=== PATIENT | male | born 1950 | race Caucasian/White ===

== ENCOUNTER 2022-07-30 10:32 | Inpatient (IN) | payer OTHER, MEDICAID ==
[~2022-07-30] VITALS: Ht 188 cm; Wt 68.0 kg
[~2022-07-30 10:32] MED LIST: ALBU0.0912 IH; ALLO100T21 PO; AMIO200T10 PO; AMOX-999 PO; ASCO500T95 PO; DULO30EC PO; ERGO-30 PO; FERR325E14 PO; MAGN400T7 PO; METO50TA99 PO; MULT-1469 PO; PANT40EC PO; POTA10TA70 PO
[2022-07-30 10:35] VITALS: BP 153/98
--- NOTE | 2022-07-30 10:39 | NUR ---
BIBA BLS TO ER BED 3
[2022-07-30] MEDS ORDERED: ALBUTEROL SULFATE/IPRATROPIU 3 ML SOL IH ONE (10:50)
--- NOTE | 2022-07-30 11:00 | NUR ---
RT AT BEDSIDE.
--- NOTE | 2022-07-30 11:13 | NUR ---
71 Y/O M BIBA FROM [facility] C/O SOB SINCE THIS MORNING AND BILATTERAL LEG SWELLING. PT WAS PUT ON LASIX BY A PA AT THE FACILITY. NKA PMH: DM, HTN, HEP C, AZTHMA, CHRONIC KIDNEY DISEASE, HEART FAILURE, GOUT, GERD, ANXIETY DISORDER, SEE CHART FOR EXTENCIVE HX.
--- NOTE | 2022-07-30 11:41 | NUR ---
LAB AT BEDSIDE.
--- NOTE | 2022-07-30 11:41 | NUR ---
NEGRO SWABED AND WALKED TO THE LAB.
[2022-07-30] MEDS ORDERED: CEFEPIME 2,000 MG in DEXTROSE 5% 100 ML IV ONE (12:00)
[2022-07-30] MEDS ORDERED: ATI.5 PO (12:10)
[2022-07-30] MEDS ORDERED: ACET-2619 PO (12:10)
[2022-07-30] MEDS ORDERED: HYDR12.51 PO (12:10)
[2022-07-30 12:13] LABS: BASOPHILS # (AUTO) 0.1 K/uL (0.00-0.22); BASOPHILS % (AUTO) 1.1 % (0.0-2.0); EOSINOPHILS # (AUTO) 0.1 K/uL (0-0.4); EOSINOPHILS % (AUTO) 0.5 % (0.0-4.0); HEMATOCRIT 25.8 % (36-52); HEMOGLOBIN 8.4 g/dL (12.0-18.0); LYMPHOCYTES # (AUTO) 0.5 K/uL (2.0-11.5); LYMPHOCYTES % (AUTO) 4.5 % (20.5-51.1); MEAN CORPUSCULAR HEMOGLOBIN 32 pg (27-31); MEAN CORPUSCULAR HGB CONC 33 g/dL (33-37); MEAN CORPUSCULAR VOLUME 97.8 fL (80-94); MONOCYTES # (AUTO) 1.1 K/uL (0.8-1.0); NEUTROPHILS % (AUTO) 83.9 % (42.2-75.2); PLATELET COUNT (AUTO) 272 K/uL (140-450); RED BLOOD CELL COUNT(AUTO) 2.64 MIL/uL (4.20-6.10); RED CELL DISTRIBUTION WIDTH 16.5 % (11.6-13.7); WHITE BLOOD COUNT (AUTO) 10.8 K/uL (4.8-10.8)
[2022-07-30] MEDS ORDERED: cefTRIAXone 2,000 MG VIAL ONE (12:24)
[2022-07-30] MEDS ORDERED: CEFEPIME 2,000 MG VIAL IV ONE (12:26)
[2022-07-30 12:28] LABS: PROTHROMBIN TIME 10.6 secs (10.8-13.4)
[2022-07-30 12:33] LABS: ALBUMIN 2.9 g/dL (3.4-5.0); ANION GAP 14.8 (8-16); ASPARTATE AMINOTRANSFERASE 18 U/L (15-37); CARBON DIOXIDE 22.2 mmol/L (21-32); CHLORIDE 109 mmol/L (98-107); GLUCOSE 94 mg/dL (74-106); SODIUM SERUM 142 mmol/L (136-145); TOTAL BILIRUBIN 0.8 mg/dL (0.0-1.0); UREA NITROGEN, BLOOD 47 mg/dL (7-18)
[2022-07-30 13:08] LABS: APPEARANCE,URINE CLEAR (CLEAR); BILIRUBIN,URINE NEGATIVE (NEGATIVE); BLOOD, URINE 1+ (NEGATIVE); COLOR,URINE YELLOW (YELLOW); LEUKOCYTE ESTERASE ,URINE NEGATIVE (NEGATIVE); NITRITE, URINE NEGATIVE (NEGATIVE); UGLUCOSE NEGATIVE (NEGATIVE)
[2022-07-30 13:20] LABS: RBC,URINE 0-5 /HPF (0-5); WBC,URINE 0-5 /HPF (0-5)
[2022-07-30 13:21] LABS: FINE GRANULAR CASTS,URINE 0-10 /LPF (None Seen)
[2022-07-30] MEDS ORDERED: methylPREDNISolone SS 125 MG/2 ML VIAL IVP SCH (13:35)
[2022-07-30] MEDS ORDERED: MAG SULF 2000 MG/WATER PREMIX 50 ML IV ONE (13:35)
[2022-07-30] MEDS ORDERED: FUROSEMIDE 100 MG/10 ML VIAL IV ONE (13:40)
[2022-07-30] MEDS ORDERED: ASPIRIN 325 MG TAB PO ONE (13:40)
[2022-07-30] MEDS ORDERED: HYDROcodone/APAP 7.5/325 MG 1 TAB PO PRN (15:00)
[2022-07-30] MEDS ORDERED: guaiFENesin DM 200/20 MG-10 ML 10 ML UDC PO PRN (15:00)
[2022-07-30] MEDS ORDERED: ONDANSETRON 4 MG/2 ML VIAL IM/IVP PRN (15:00)
[2022-07-30] MEDS ORDERED: ZOLPIDEM 5 MG TAB PO PRN (15:00)
[2022-07-30] MEDS ORDERED: ACETAMINOPHEN 325 MG TAB PO PRN (15:00)
[2022-07-30] MEDS ORDERED: POTASSIUM CHLORIDE 10 MEQ TABER PO PRN (15:00)
[2022-07-30] MEDS ORDERED: DOCUSATE SODIUM 100 MG GELCAP PO PRN (15:00)
--- NOTE | 2022-07-30 15:05 | NUR ---
Pt report given to TONIO REED. Transfer of care at this time.
--- NOTE | 2022-07-30 15:12 | NUR ---
Chart checked and completed. The patient's care was reviewed and supervised by Madeline Roland RN.
[2022-07-30 15:35] LABS: CHOL/HDL RATIO 2.1 (1-4.5); MAGNESIUM 2.2 mg/dL (1.8-2.4); PHOSPHORUS 3.3 mg/dL (2.5-4.9)
[2022-07-30] MEDS: HALOPERIDOL IM 5 MG/ML VIAL IM PRN (15:43)
--- NOTE | 2022-07-30 15:52 | NUR ---
RECEIVED PATIENT FROM ED VIA GURNEY AT 1500. A/O X1. PATIENT CONFUSED AND BECAME COMBATIVE WITH STAFF WHILE TRYING TO CLEAN PATIENT. PATIENT USING FOUL LANGUAGE TOWARDS STAFF AND ATTEMPTING TO HIT STAFF. PATIENT PULLED OUT IV AND TELE BOX OFF AND WOULD NOT ALLOW LAB TO DRAW LABS. DR. OCHOA PRESENT IN UNIT AND CAME TO BEDSIDE AND WITNESSED PATIENTS BEHAVIOR. ORDERS GIVEN TO PLACE ROBBY SOFT WRIST RESTRAINTS AND GIVE HALDOL 5MG IM. RESTRAINTS APPLIED AT 1515 ORDERED AND HALDOL 5MG IM GIVEN AT 1543 ORDERED. CHARGE NURSE MADE AWARE AND DR. OCHOA AWARE PATIENT HAS NO IV ACCESS AT THIS TIME. WILL TRY AND START NEW IV ONCE PATIENT IS MORE CALM. RESPIRATIONS EVEN AND UNLABORED. NO ACUTE DISTRESS NOTED AT THIS TIME. WILL CONTINUE TO MONITOR FOR SAFETY. Eunice PARK RN.
[2022-07-30 16:00] VITALS: BP 162/70
--- NOTE | 2022-07-30 18:28 | NUR ---
P.T. NOTES P.T. EVAL COMPLETED; REFER TO EVAL FOR DETAILS.
--- NOTE | 2022-07-30 18:39 | NUR ---
1725 SPOKE TO PATIENTS SISTER CARRIE MINOR AND INFORMED HER OF PATIENTS BEHAVIOR AND NEED TO BE IN RESTRAINTS. SHE VERBALIZED UNDERSTANDING AND STATED HER BROTHER HAS DEMENTIA AND THE LAST TIME HE WAS ADMITTED TO THIS HOSPITAL HE HAD TO HAVE A SITTER. ALSO INFORMED HER PATIENT PULLED OUT HIS IV AND OBTAINED CONSENT FOR PICC LINE/ MIDLINE. DR. OCHOA AWARE CONSENT OBTAINED. Eunice PARK RN.
--- NOTE | 2022-07-30 19:20 | NUR ---
RECEIVED REPORT FROM DAY SHIFT RN FOR CONTINUITY OF CARE. PT IS CURRENTLY SLEEPING IN BED. PT NOT IN ANY ACUTE DISTRESS. PT HAS 24 GAUGE ON LEFT WRIST. PT IS ON SOFT WRIST RESTRAINTS. BED AT THE LOWEST POSITION. HEAD OF THE BED RAISED. WILL CONTINUE TO MONITOR THE PT.
[2022-07-30 20:00] VITALS: BP 159/77
[2022-07-30] MEDS: QUEtiapine FUMARATE 25 MG TAB PO SCH (20:53)
--- NOTE | 2022-07-30 20:53 | NUR ---
SCHEDULE MEDICATIONS NOT GIVEN. PT IS CONFUSED AAOX1. PT REFUSED MEDICATION. PT REFUSED THE MEDICATION WITH FOOD. DID NOT WANT ANY WATER. REFUSED EVERYTHING.
[2022-07-30] MEDS ORDERED: VANCOMYCIN PER PHARMACY MC PRN (21:10)
[2022-07-30] MEDS ORDERED: VANCOMYCIN 1GM/DEXT 5% PREMIX 200 ML IV SCH (21:30)
[2022-07-30] MEDS ORDERED: VANCOMYCIN 1,000 MG VIAL ONE (21:47)
--- NOTE | 2022-07-30 22:24 | NUR ---
NEW MEDICATION ORDER VANCOMYCIN GIVEN. NO ADVERSE REACTION NOTED. WILL CONTINUE TO MONITOR THE PT.
[2022-07-31] VITALS: BP 158/87
[2022-07-31] MEDS ORDERED: AMPICILLIN/SULBACTAM 1.5 GM VIAL ONE ×2 (00:12→06:28)
[2022-07-31] MEDS: AMPICILLIN/SULBACTAM 1.5 GM in NACL 0.9% 50 ML IV SCH ×4 (00:24→21:41)
--- NOTE | 2022-07-31 00:30 | NUR ---
NEW MEDICATION ORDER AMPICILLIN GIVEN. NO ADVERSE REACTION NOTED. WILL CONTINUE TO MONITOR THE PT.
[2022-07-31 04:00] VITALS: BP 189/94
[2022-07-31] MEDS: METOPROLOL 50 MG TAB PO SCH ×3 (04:56→21:00)
--- NOTE | 2022-07-31 05:00 | NUR ---
SCHEDULE MEDICATIONS GIVEN. NORCO GIVEN WELL FOR BACK PAIN. NO OTHER COMPLAINS. WILL CONTINUE TO MONITOR THE PT.
[2022-07-31 06:04] LABS: BARBITURATE, URINE NEGATIVE ng/ml (NEG <=200); BENZODIAZEPINE, URINE NEGATIVE ng/mL (NEG <=200); CANNABINOID, URINE NEGATIVE ng/mL (NEG <=50); COCAINE, URINE NEGATIVE ng/mL (NEG <=300); OPIATE, URINE NEGATIVE ng/mL (NEG <=2000); PHENCYCLIDINE SCREEN,URINE NEGATIVE ng/mL (NEG <=25)
[2022-07-31] MEDS: hydrALAZINE 20 MG/ML VIAL IVP PRN (06:34)
--- NOTE | 2022-07-31 07:18 | NUR ---
ENDORSED PT TO DAY SHIFT RN FOR CONTINUITY OF CARE. PT IS STABLE.
[2022-07-31 07:20] LABS: ANION GAP 16.9 (8-16); CHLORIDE 107 mmol/L (98-107); GLUCOSE 155 mg/dL (74-106); POTASSIUM 4.9 mmol/L (3.5-5.1); SODIUM SERUM 141 mmol/L (136-145); UREA NITROGEN, BLOOD 55 mg/dL (7-18)
[2022-07-31 07:21] LABS: BASOPHILS % (AUTO) 0.2 % (0.0-2.0); HEMATOCRIT 25.8 % (36-52); HEMOGLOBIN 8.6 g/dL (12.0-18.0); LYMPHOCYTES # (AUTO) 0.2 K/uL (2.0-11.5); LYMPHOCYTES % (AUTO) 2.7 % (20.5-51.1); MEAN CORPUSCULAR HEMOGLOBIN 32 pg (27-31); MEAN CORPUSCULAR HGB CONC 33 g/dL (33-37); MEAN CORPUSCULAR VOLUME 95.9 fL (80-94); MONOCYTES # (AUTO) 0.2 K/uL (0.8-1.0); MONOCYTES % (AUTO) 2.5 % (1.7-9.3); NEUTROPHILS # (AUTO) 7.8 K/uL (1.8-7.7); NEUTROPHILS % (AUTO) 94.6 % (42.2-75.2); PLATELET COUNT (AUTO) 273 K/uL (140-450); RED BLOOD CELL COUNT(AUTO) 2.69 MIL/uL (4.20-6.10); RED CELL DISTRIBUTION WIDTH 15.9 % (11.6-13.7); WHITE BLOOD COUNT (AUTO) 8.3 K/uL (4.8-10.8)
[2022-07-31 07:48] LABS: CREATININE 4.4 mg/dL (0.6-1.3)
[2022-07-31 08:00] VITALS: BP 169/88
[2022-07-31] MEDS ORDERED: PANTOPRAZOLE 40 MG TABEC PO SCH (09:00)
[2022-07-31] MEDS: hydroCHLOROthiazide 25 MG TAB PO SCH (09:31)
[2022-07-31] MEDS: AMIODARONE 200 MG TAB PO SCH ×2 (09:31→21:00)
[2022-07-31] MEDS: LORazepam 0.5 MG TAB PO SCH (09:32)
[2022-07-31] MEDS: FERROUS SULFATE 325 MG TABEC PO SCH ×2 (09:32→21:41)
[2022-07-31] MEDS: QUEtiapine FUMARATE 25 MG TAB PO SCH ×2 (09:32→21:41)
[2022-07-31] MEDS: DULoxetine 30 MG CAPDR PO SCH (09:32)
[2022-07-31] MEDS: allopurinoL 100 MG TAB PO SCH (09:32)
[2022-07-31] MEDS: PANTOPRAZOLE 40 MG TABEC PO SCH (09:33)
--- NOTE | 2022-07-31 11:38 | NUR ---
PATIENT HAS BEEN SCREENED AND CATEGORIZED MODERATE NUTRITION RISK. PATIENT WILL BE SEEN WITHIN 3-5 DAYS OF ADMISSION. 08/02/2210 PT BMI 14.9 IS INCORRECT PER RN. UNABLE TO MEASURE PT WEIGHT AT THIS TIME D/T NO BED SCALE OPTION. UNABLE TO OBTAIN INFORMATION FROM PT D/T PT SLEEPING AND HAS DEMENTIA. RD VISUALLY EXAMINED PT, NOT MALNOURISHED. PT ABLE TO FEED SELF, 100% PO INTAKE. RECOMMENDED RENAL DIET. GABRIELLE SUMNER RD
[2022-07-31 12:00] VITALS: BP 137/64
--- NOTE | 2022-07-31 12:59 | NUR ---
DC PLANNING SW OUTREACHED TO [facility] TO GATHER COLLATERAL INFORMATION PATIENT IS MINIMALLY VERBALLY. SW SPOKE WITH JOHN AT WHO REPORTED PATIENT WAS IN HOSPICE CARE UPON ADMISSION TO 02/27-05/25, THEN TRANSFERRED TO [facility] ON 05/25 PATIENT TESTED POSITIVE FOR COVID. HOSPICE WITH [facility] REVOKED OF 05/25/22. PATIENT RETURNED SKILLED CARE ON 06/09 AND IS RECEIVING PT/OT/NURSING CARE.JOHN REPORTS THAT PATIENT UTILIZES WC AND REQUIRES EXTENSIVE ASSIST. PATIENT REQUIRES ASSISTANCE WITH ALL ADL'S. JOHN REPORTS PATIENT AT BASELINE IS CONFUSED AND CAN BE RESISTANT TO CARE. PATIENTS SISTER IS CARRIE STAPLES [phone] IS REPORTED TO BE ACTIVE IN PATIENTS CARE. DC PLAN IS FOR PATIENT OT RETURN TO WHEN MEDICALLY STABLE.
[2022-07-31 16:00] VITALS: BP 134/67
--- NOTE | 2022-07-31 19:10 | NUR ---
RECEIVED BEDSIDE REPORT FROM DAY SHIFT RN FOR CONTINUITY OF CARE. PT IS ASLEEP. PT NO TIN ANY DISTRESS. PT IS ON RA SATING 98%. PT IS ON SOFT WRIST RESTRAINTS FOR PULLING LINES AND COMBATIVE BEHAVIOR. PT HAS LEFT WRIST 24 GAUGE SALINE LOCK. BED AT THE LOWEST POSITION. HEAD OF THE BED RAISED. WILL CONTINUE TO MONITOR THE PT.
[2022-07-31 20:00] VITALS: BP 122/80
--- NOTE | 2022-07-31 20:25 | NUR ---
NEW IV INSERTED ON RIGHT UPPER ARM 24 GAUGE.
--- NOTE | 2022-07-31 21:50 | NUR ---
SCHEDULE MEDICATIONS GIVEN EXCEPT AMPICILLIN. PT IV GOT INFILTRATED. TRIED NEW IV INSERTION WITHOUT SUCCESS. PT IS HARD STICK.
--- NOTE | 2022-07-31 22:25 | NUR ---
NEW IV INSERTED ON RIGHT UPPER ARM 24 GAUGE.
[2022-08-01] VITALS: BP 119/71
--- NOTE | 2022-08-01 01:58 | NUR ---
PT IS SLEEPING COMFORTABLY IN BED. PT NOT IN ANY ACUTE DISTRESS. WILL CONTINUE TO MONITOR THE PT.
[2022-08-01 04:00] VITALS: BP 180/88
[2022-08-01] MEDS: hydrALAZINE 20 MG/ML VIAL IVP PRN (04:34)
--- NOTE | 2022-08-01 04:39 | NUR ---
PT BLOOD PRESSURE IS HIGH 180/88. HYDRALAZINE GIVEN PER MD ORDER.
[2022-08-01] MEDS: METOPROLOL 50 MG TAB PO SCH ×3 (05:00→21:00)
--- NOTE | 2022-08-01 07:18 | NUR ---
ENDORSED PT TO DAY SHIFT RN FOR CONTINUITY OF CARE. PT IS STABLE.
[2022-08-01 08:00] VITALS: BP_SYST 135; BP_SYST 151; BP_DIAS 74; BP_DIAS 86
[2022-08-01] MEDS: AMPICILLIN/SULBACTAM 1.5 GM in NACL 0.9% 50 ML IV SCH ×2 (08:56→20:27)
[2022-08-01] MEDS: PANTOPRAZOLE 40 MG TABEC PO SCH (08:57)
[2022-08-01] MEDS: DULoxetine 30 MG CAPDR PO SCH (08:57)
[2022-08-01] MEDS: hydroCHLOROthiazide 25 MG TAB PO SCH (08:57)
[2022-08-01] MEDS: allopurinoL 100 MG TAB PO SCH (08:58)
[2022-08-01] MEDS: QUEtiapine FUMARATE 25 MG TAB PO SCH ×2 (08:58→20:28)
[2022-08-01] MEDS: LORazepam 0.5 MG TAB PO SCH (08:58)
[2022-08-01] MEDS: AMIODARONE 200 MG TAB PO SCH ×2 (08:59→21:00)
[2022-08-01] MEDS: FERROUS SULFATE 325 MG TABEC PO SCH ×2 (08:59→20:27)
[2022-08-01 12:00] VITALS: BP 135/66
[2022-08-01 16:00] VITALS: BP 126/67
--- NOTE | 2022-08-01 19:20 | NUR ---
RECEIVED REPORT FROM DAY SHIFT RN FOR CONTINUITY OF CARE. PT IS AWAKE. PT IS AAOX2-3 WITH SOME CONFUSION. ON RA. PT HAS 24 GAUGE ON FAWAD. SALINE LOCK. PT IS CURRENTLY OFF RESTRAINTS. PT IS CALM AND COOPERATIVE. PLAN OF CARE DISCUSSED. WILL CONTINUE TO MONITOR THE PT.
[2022-08-01 20:00] VITALS: BP 107/59
[2022-08-01] MEDS: HALOPERIDOL IM 5 MG/ML VIAL IM PRN (20:37)
--- NOTE | 2022-08-01 20:50 | NUR ---
PT WAS GIVEN HALOPERIDOL. PT WAS BEING COMBATIVE AND WANTED TO LEAVE THE BED TO MAKE A PHONE CALL TO LEAVE THE HOSPITAL. PT WAS BECOMING VERY AGGRESSIVE AND YELLING OUT CURSE WORDS. PT REFUSED TO LISTEN AND WAS BEING UNCOOPERATIVE.
--- NOTE | 2022-08-01 23:28 | NUR ---
GELLER CATHETER INSERTED PER MD ORDER. PT BECAME COMBATIVE AND AGGRESSIVE. PT KEPT TRYING TO PULL GELLER CATHETER OUT. MESSAGED DR. OCHOA IF HE WANTS TO RENEW RESTRAINTS TO PREVENT PT FROM PULLING GELLER OUT.
[2022-08-02] VITALS: BP 109/63
--- NOTE | 2022-08-02 03:35 | NUR ---
PT IS SLEEPING COMFORTABLY IN BED. FC DRAINING CLEAR YELLOW URINE. PT HAS NOT PULLED GELLER OUT. PT IS NOT ON ANY RESTRAINTS
[2022-08-02 04:00] VITALS: BP 108/52
[2022-08-02] MEDS: METOPROLOL 50 MG TAB PO SCH ×3 (05:00→21:43)
--- NOTE | 2022-08-02 06:05 | NUR ---
PT IS SLEEPING COMFORTABLY IN BED. FC DRAINING CLEAR YELLOW URINE. PT HAS NOT PULLED GELLER OUT. PT IS NOT ON ANY RESTRAINTS
--- NOTE | 2022-08-02 07:32 | NUR ---
ENDORSED PT TO DAY SHIFT RN FOR CONTINUITY OF CARE. PT IS STABLE.
--- NOTE | 2022-08-02 07:46 | NUR ---
Report received from previous shift. Have reviewed care and continue to monitor pt. Pt in bed with call light in reach.
[2022-08-02 08:31] VITALS: BP 143/63
[2022-08-02] MEDS: AMIODARONE 200 MG TAB PO SCH ×2 (08:53→21:44)
[2022-08-02] MEDS: DULoxetine 30 MG CAPDR PO SCH (08:54)
[2022-08-02] MEDS: FERROUS SULFATE 325 MG TABEC PO SCH ×2 (08:54→21:44)
[2022-08-02] MEDS: allopurinoL 100 MG TAB PO SCH (08:55)
[2022-08-02] MEDS: LORazepam 0.5 MG TAB PO SCH (08:55)
[2022-08-02] MEDS: hydroCHLOROthiazide 25 MG TAB PO SCH (08:55)
[2022-08-02] MEDS: QUEtiapine FUMARATE 25 MG TAB PO SCH ×2 (08:55→21:44)
[2022-08-02] MEDS: AMPICILLIN/SULBACTAM 1.5 GM in NACL 0.9% 50 ML IV SCH ×2 (08:56→21:45)
[2022-08-02] MEDS: TAMSULOSIN 0.4 MG CAP PO SCH (08:56)
[2022-08-02] MEDS: PANTOPRAZOLE 40 MG TABEC PO SCH (08:56)
[2022-08-02 12:00] VITALS: BP 129/64
[2022-08-02 16:00] VITALS: BP 134/68
[2022-08-02 17:54] LABS: CARBON DIOXIDE 22.6 mmol/L (21-32); CHLORIDE 109 mmol/L (98-107); GLUCOSE 96 mg/dL (74-106); POTASSIUM 3.6 mmol/L (3.5-5.1); SODIUM SERUM 142 mmol/L (136-145)
[2022-08-02 18:09] LABS: UREA NITROGEN, BLOOD 75 mg/dL (7-18)
[2022-08-02 18:10] LABS: CREATININE 4.5 mg/dL (0.6-1.3)
--- NOTE | 2022-08-02 18:18 | NUR ---
Critical labs reported to this nurse from lab, this nurse reported to Dr Sullivan. Creatinine of 4.5 and BUN of 75. Last labs were 07/31/22 because of patient refusal. New order for NS at 70/hr started
[2022-08-02] MEDS: NACL 0.9% 1,000 ML IV SCH (18:37)
--- NOTE | 2022-08-02 18:50 | NUR ---
Pt admitted this shift for lower abd pain and dysuria. Pt reports 10/10 burning pain while urinating and frequency. Admission complete. Pt has NS running at 80/hr. YARN WRAPPER reported a temperature of 101 at 1600 VS check. Tylenol was given, upon recheck pt temperature was 99.4
[2022-08-02 20:00] VITALS: BP 130/66
[2022-08-03] VITALS: BP 131/68
[2022-08-03 04:00] VITALS: BP 161/90
[2022-08-03] MEDS: METOPROLOL 50 MG TAB PO SCH ×2 (05:25→13:49)
[2022-08-03 06:56] LABS: ANION GAP 14.1 (8-16); CARBON DIOXIDE 23.3 mmol/L (21-32); CHLORIDE 111 mmol/L (98-107); GLUCOSE 87 mg/dL (74-106); HEMATOCRIT 23.4 % (36-52); HEMOGLOBIN 7.8 g/dL (12.0-18.0); MEAN CORPUSCULAR HEMOGLOBIN 32 pg (27-31); MEAN CORPUSCULAR HGB CONC 33 g/dL (33-37); MEAN CORPUSCULAR VOLUME 94.6 fL (80-94); PLATELET COUNT (AUTO) 270 K/uL (140-450); POTASSIUM 3.4 mmol/L (3.5-5.1); RED BLOOD CELL COUNT(AUTO) 2.47 MIL/uL (4.20-6.10); RED CELL DISTRIBUTION WIDTH 15.6 % (11.6-13.7); SODIUM SERUM 145 mmol/L (136-145); WHITE BLOOD COUNT (AUTO) 6.8 K/uL (4.8-10.8)
[2022-08-03 07:03] LABS: CREATININE 4.4 mg/dL (0.6-1.3); UREA NITROGEN, BLOOD 74 mg/dL (7-18)
--- NOTE | 2022-08-03 07:07 | NUR ---
REC'D CRITICAL LAB RESULTS: BUN 74, CREAT 4.4. CONTACTED DR. OCHOA W/ DETAILS. PENDING FURTHER INSTRUCTIONS
[2022-08-03 08:00] VITALS: BP 153/87
[2022-08-03 08:07] LABS: LYMPHOCYTES % (MANUAL) 16 % (20-46)
[2022-08-03 08:08] LABS: MONOCYTES % (MANUAL) 14 % (5-12)
[2022-08-03] MEDS: AMPICILLIN/SULBACTAM 1.5 GM in NACL 0.9% 50 ML IV SCH (08:20)
[2022-08-03] MEDS: NACL 0.9% 1,000 ML IV SCH (08:22)
[2022-08-03] MEDS: allopurinoL 100 MG TAB PO SCH (08:24)
[2022-08-03] MEDS: QUEtiapine FUMARATE 25 MG TAB PO SCH (08:25)
[2022-08-03] MEDS: FERROUS SULFATE 325 MG TABEC PO SCH (08:27)
[2022-08-03] MEDS: AMIODARONE 200 MG TAB PO SCH (08:27)
[2022-08-03] MEDS: hydroCHLOROthiazide 25 MG TAB PO SCH (08:29)
[2022-08-03] MEDS: PANTOPRAZOLE 40 MG TABEC PO SCH (08:30)
[2022-08-03] MEDS: DULoxetine 30 MG CAPDR PO SCH (08:31)
[2022-08-03] MEDS: LORazepam 0.5 MG TAB PO SCH (08:31)
[2022-08-03] MEDS: TAMSULOSIN 0.4 MG CAP PO SCH (08:35)
--- NOTE | 2022-08-03 09:02 | NUR ---
PT. WITH LOW JHONATAN SCALE AT MODERATE TO HIGH RISK, CONTINUE TO FOLLOW PRESSURE INJURY PREVENTION INTERVENTIONS. -POSITIONING: TURN AND REPOSITION PATIENT Q 2H OR SOONER USE PILLOWS TO KEEP BONY PROMINENCES FROM DIRECT CONTACT WITH SURFACES USE REPOSITIONING WEDGES TO PROVIDE 30-DEGREE ANGLE FOR SIDE LYING POSITIONS OFFLOADING OR FOAM DRESSING TO ALL TUBING TO PREVENT MEDICAL DEVICES RELATED PRESSURE INJURY -RE-EVALUATING AND MANAGING INCONTINENCE MONITOR SKIN CONDITION DURING POSITION CHANGE DO NOT MASSAGE REDNESS, BONY PROMINENCES FREQUENT JEANIE-CARE AND PROVIDE BARRIER CREAMS PRN IF SOILING MOISTURE CONTROL BY OFFER BED CERVANTES/URINAL /ABSORBENT PAD TO WICK AND HOLD MOISTURE KEEP SKIN DRY AND PROTECT FROM FRICTION -MANAGE FRICTION/SHEAR/MOBILITY KEEP HOB AT THE LOWEST LEVEL OF ELEVATION NO MORE THAN 30 DEGREE UNLESS OTHERWISE CONTRAINDICATED USE LIFT SHEET OR TRANSFER DEVICE TO MOVE PATIENT AND PREVENT LATERAL SHEER. PROTECT HEELS, ELBOWS BONY PROMINENCES WITH SKIN BERRIES OR FOAM DRESSING IF EXPOSED TO FRICTION OFFLOAD BILATERAL HEELS BY PLACING PILLOWS UNDER CALVES AT ALL TIMES, UNLESS OTHERWISE CONTRAINDICATED -PRESSURE REDISTRIBUTION SURFACE THERAPY JUSTINO ISOFLEX MATTRESS -NUTRITION: PLEASE FOLLOW RD RECOMMENDATIONS AND OFFER NUTRITION SUPPLEMENTS IF ORDERED. PLEASE CONTACT WOUND CARE NURSE FOR ANY QUESTION AND CHANGE OF WOUND CONDITION.
[2022-08-03 10:00] VITALS: BP 132/69
[2022-08-03] MEDS ORDERED: UNASYN IV (10:15)
[2022-08-03] MEDS: HALOPERIDOL IM 5 MG/ML VIAL IM PRN (14:14)
--- NOTE | 2022-08-03 14:19 | NUR ---
FOUND PT TUGGING ON CATHETER, PT REFUSED TO LET GO, STATING HE DID NOT WANT IT. REORIENTED AND EDUCATED PT, PT REFUSED AND BECAME AGITATED. GAVE HALDOL IM IN RIGHT UPPER ARM. NOTIFIED PRIMARY RN PRISCILA.
[2022-08-03 16:00] VITALS: BP 146/72
--- NOTE | 2022-08-03 16:14 | NUR ---
08/03/2022 RD INITIAL ASSESSMENT COMPLETED. PLEASE REFER TO NUTRITION ASSESSMENT UNDER CARE ACTIVITY FOR ESTIMATED NUTRITIONAL NEEDS. 1. RECOMMEND DIET CHANGE TO RENAL DIET 2. MONITOR NUTRITION RELATED LAB VALUES 3. RD TO FOLLOW-UP IN 3-5 DAYS PATIENT IS MODERATE RISK. REVIEWED BY TIFF GOODWIN RD
--- NOTE | 2022-08-03 16:19 | NUR ---
DC PLANNING: PATIENT IS RETURNING TO [facility] # TO GIVE REPORT [phone] . ARRANGED TRANSPORT WITH [facility] # [id number] TRANSPORT WILL CALL THE UNIT FOR ETA. NOTIFIED CHARGE NURSE LULA. LUBNA TO FOLLOW
[2022-08-03 16:21] VITALS: BP 146/72
== END 2022-08-03 19:02 | DRG 280 ==
LOC: MED 10:32 → MTU 13:13
PROVIDERS: ADMIT Student in an Organized Health Care Education/Training Program; ATTEND Student in an Organized Health Care Education/Training Program
DX: I21.4 Non-ST elevation (NSTEMI) myocardial infarction (principal); E43 Unspecified severe protein-calorie malnutrition; J18.9 Pneumonia, unspecified organism; N17.0 Acute kidney failure with tubular necrosis; I50.33 Acute on chronic diastolic (congestive) heart failure; Z68.1 Body mass index [BMI] 19.9 or less, adult; I13.0 Hypertensive heart and chronic kidney disease with heart failure and stage 1 through stage 4 chronic kidney disease, or unspecified chronic kidney disease; N18.4 Chronic kidney disease, stage 4 (severe); C34.90 Malignant neoplasm of unspecified part of unspecified bronchus or lung; K74.60 Unspecified cirrhosis of liver; N40.0 Benign prostatic hyperplasia without lower urinary tract symptoms; D64.9 Anemia, unspecified; F03.90 Unspecified dementia, unspecified severity, without behavioral disturbance, psychotic disturbance, mood disturbance, and anxiety; E11.22 Type 2 diabetes mellitus with diabetic chronic kidney disease; Z20.822 Contact with and (suspected) exposure to COVID-19; Z86.718 Personal history of other venous thrombosis and embolism; Z79.01 Long term (current) use of anticoagulants
CPT/HCPCS: 36415; 71045; 76770; 80048; 80053; 80305; 81001; 82550; 83036; 83605; 83735; 83880; 84100; 84443; 84484; 85025; 85379; 85610; 85730; 87040; 87086; 93005; 93970; 96365; 96375; 97110; 97112; 97530; 99285; J0295; J0360; J0692; J0696; J1630; J1940; J2930; J3370; J3475; Q0092

== ENCOUNTER 2022-08-22 10:38 | Inpatient (IN) | payer OTHER, MEDICAID ==
[~2022-08-22] VITALS: Ht 193 cm; Wt 73.5 kg
[~2022-08-22 10:38] MED LIST changes: +ACET-2619 PO; -AMOX-999 PO; -ASCO500T95 PO; +ATI.5 PO; +HYDR12.51 PO; -MULT-1469 PO; -POTA10TA70 PO; +UNASYN IV
[2022-08-22 10:45] VITALS: BP 170/81
[2022-08-22] MEDS ORDERED: hydrALAZINE 20 MG/ML VIAL IVP ONE (11:15)
[2022-08-22 12:25] LABS: BASOPHILS % (AUTO) 0.6 % (0.0-2.0); EOSINOPHILS # (AUTO) 0.1 K/uL (0-0.4); EOSINOPHILS % (AUTO) 0.7 % (0.0-4.0); HEMATOCRIT 30.4 % (36-52); HEMOGLOBIN 10.2 g/dL (12.0-18.0); LYMPHOCYTES % (AUTO) 13.8 % (20.5-51.1); MEAN CORPUSCULAR HEMOGLOBIN 31 pg (27-31); MEAN CORPUSCULAR HGB CONC 34 g/dL (33-37); MONOCYTES # (AUTO) 0.8 K/uL (0.8-1.0); MONOCYTES % (AUTO) 12.1 % (1.7-9.3); NEUTROPHILS # (AUTO) 5.1 K/uL (1.8-7.7); NEUTROPHILS % (AUTO) 72.8 % (42.2-75.2); PLATELET COUNT (AUTO) 42 K/uL (140-450)
[2022-08-22 12:33] LABS: ALBUMIN 3.3 g/dL (3.4-5.0); ANION GAP 14.1 (8-16); ASPARTATE AMINOTRANSFERASE 29 U/L (15-37); CARBON DIOXIDE 26.6 mmol/L (21-32); CHLORIDE 106 mmol/L (98-107); GLUCOSE 100 mg/dL (74-106); POTASSIUM 3.7 mmol/L (3.5-5.1); SODIUM SERUM 143 mmol/L (136-145); TOTAL BILIRUBIN 0.5 mg/dL (0.0-1.0); UREA NITROGEN, BLOOD 44 mg/dL (7-18)
[2022-08-22] MEDS ORDERED: NITROGLYCERIN 0.4 MG TAB SL ONE (12:45)
[2022-08-22] MEDS ORDERED: FUROSEMIDE 40 MG/4 ML VIAL IVP ONE (12:45)
--- NOTE | 2022-08-22 12:48 | NUR ---
sleeping, easily arousable to verbal stimuli, denies any pain, sb on cm, o2 sat 99% ra, sr up times 2 labs drawn, bp med given iv, now lower bp, awaits dispo
[2022-08-22] MEDS ORDERED: ASPIRIN 325 MG TAB PO ONE (13:20)
[2022-08-22 14:17] LABS: APPEARANCE,URINE CLEAR (CLEAR); BILIRUBIN,URINE NEGATIVE (NEGATIVE); BLOOD, URINE 1+ (NEGATIVE); COLOR,URINE YELLOW (YELLOW); LEUKOCYTE ESTERASE ,URINE NEGATIVE (NEGATIVE); NITRITE, URINE NEGATIVE (NEGATIVE); UGLUCOSE NEGATIVE (NEGATIVE)
--- NOTE | 2022-08-22 14:46 | NUR ---
PT TRANSFERRED TO TELEBED, BEDSIDE REPORT GIVEN TO DEREK RICHARD PT SHOWED NO AC DISTRESS, SB ON CM, O2 SAT 99% RA. MED RECONCILIATION DONE PT DENIED ANY PAIN AT TRANSFER TIME, DIAPER WAS CLEAN AND DRY
--- NOTE | 2022-08-22 14:58 | NUR ---
RECEIVED FROM ED AWAKE UNABLE TO MAKE NEEDS KNOWN ASSESSMENT COMPLETED SKIN CLEAN DRY AND INTACT NO S/S OF PAIN BREATHING EVEN NON LABORED TROPONIN 266 MD BERNAL MADE AWARE WILL CONTINUE TO MONITOR AND ASSESS TURNED AND REPOSITIONED WILL CONTINUE TO MAKE ROUNDS
[2022-08-22 15:16] LABS: RBC,URINE 11-20 (MOD) /HPF (0-5); TRICHOMONAS,URINE None Seen /HPF (None Seen); WBC,URINE 0-5 /HPF (0-5); YEAST,URINE None Seen /HPF (None Seen)
[2022-08-22 15:17] LABS: RED BLOOD CELL CASTS,URINE 0-10 /LPF (None Seen)
[2022-08-22 16:00] VITALS: BP 176/87
--- NOTE | 2022-08-22 16:36 | NUR ---
PT COMBATIVE NON COMPLIANT PULLED OUT IV PULLED OFF TELEMETRY REFUSING TO HAVE IV REINSERTED AND REFUSING TELEMETRY BP 176/87 MD BERNAL PAGED AWAITING A REPLAY
[2022-08-22] MEDS ORDERED: DOCUSATE SODIUM 100 MG GELCAP PO PRN (16:45)
[2022-08-22] MEDS ORDERED: POTASSIUM CHLORIDE 10 MEQ TABER PO PRN (16:45)
[2022-08-22] MEDS ORDERED: guaiFENesin DM 200/20 MG-10 ML 10 ML UDC PO PRN (16:45)
[2022-08-22] MEDS ORDERED: ACETAMINOPHEN 325 MG TAB PO PRN (16:45)
[2022-08-22] MEDS ORDERED: ZOLPIDEM 5 MG TAB PO PRN (16:45)
[2022-08-22] MEDS ORDERED: ONDANSETRON 4 MG/2 ML VIAL IM/IVP PRN (16:45)
--- NOTE | 2022-08-22 16:59 | NUR ---
MD MADE AWARE WILL REDIRECT PT NO RESTRAINTS AT THIS TIME WILL ADMINISTER ATIVAN 1MG iIM X1 AND ATTEMPT TO RESTART IV AND REAPPLY TELEMETRY
[2022-08-22] MEDS ORDERED: LORazepam 2 MG/ML VIAL IM SCH (17:05)
--- NOTE | 2022-08-22 17:38 | NUR ---
ATIVAN GIVEN ORDERED PT APPEARS STABLE WILL ATTEMPT TO RESTART IV AND APPLY TELEMETRY WHEN PT IS LESS AGITATED
[2022-08-22 17:58] LABS: PROTHROMBIN TIME 9.9 secs (10.8-13.4)
[2022-08-22 18:03] LABS: CHOL/HDL RATIO 2.7 (1-4.5); FREE T4 (FREE THYROXINE) 1.38 ng/dL (0.76-1.46); MAGNESIUM 2.1 mg/dL (1.8-2.4); PHOSPHORUS 3.6 mg/dL (2.5-4.9); THYROID STIMULATING HORMONE 0.81 uIU/mL (0.34-3.74)
--- NOTE | 2022-08-22 19:02 | NUR ---
TELE REAPPLED AND 24G STARTED AT LEFT UPPER ARM CARE ENDORSED TO ANDREZ RN
--- NOTE | 2022-08-22 19:10 | NUR ---
RECEIVED REPORT FROM DAY SHIFT RN MANOHAR FOR CONTINUITY OF CARE. PT IS SLEEP WITH NO ACUTE DISTRESS. PT HAS 24 GUAGE ON LEFT UPPER ARM SALINE LOCK. PT HAS DIAPER ON. PT IS FALL PRECAUTION. WILL CONTINUE OT MONITOR THE PT.
[2022-08-22 20:00] VITALS: BP 152/73
[2022-08-22] MEDS: AMIODARONE 200 MG TAB PO SCH (20:54)
[2022-08-22] MEDS: METOPROLOL 50 MG TAB PO SCH (20:55)
--- NOTE | 2022-08-22 20:55 | NUR ---
PT HR 62 AND BP OF 152/73. MESSAGED ADVERTISER DR. CARRENO TO GIVE OR HOLD SCHEDULE MEDICATIONS OF 400 MG AMIODARONE AND 50 MG METOPROLOL. REPLIED TO HOLD METOPROLOL AND GIVE AMIODARONE.
[2022-08-23] VITALS: BP 158/80
--- NOTE | 2022-08-23 02:30 | NUR ---
PT IS SLEEPING COMFORTABLY IN BED. PT IS NOT IN ANY ACUTE DISTRESS. VISIBLE RISE AND CHEST FALL. CALL LIGHT WITHIN REACH. ALL SAFETY MEASURES TAKEN. WILL CONTINUE TO MONITOR THE PT.
[2022-08-23 04:00] VITALS: BP 154/75
[2022-08-23] MEDS: METOPROLOL 50 MG TAB PO SCH ×4 (05:00→21:00)
--- NOTE | 2022-08-23 05:10 | NUR ---
METOPROLOL NOT GIVEN DUE TO LOW HR 58
--- NOTE | 2022-08-23 07:24 | NUR ---
ENDORSED PT TO MANOHAR FOR CONTINUITY OF CARE. PT IS STABLE.
[2022-08-23 08:00] VITALS: BP 187/92
--- NOTE | 2022-08-23 08:00 | NUR ---
RECEIVED IN BED ASSESSMENT COMPLETED PT RESISTANT TO CARE PLAN OF CARE REVIEWED TURNED AND REPOSITIONED NO COMPLAINTS OF PAIN RESPIRATIONS EVEN NON LABORED WILL CONTINUE TO MONITOR AND ASSESS
[2022-08-23] MEDS: AMIODARONE 200 MG TAB PO SCH ×2 (08:21→21:14)
[2022-08-23] MEDS: hydroCHLOROthiazide 25 MG TAB PO SCH (08:22)
[2022-08-23] MEDS: PANTOPRAZOLE 40 MG TABEC PO SCH (08:22)
[2022-08-23] MEDS: DULoxetine 30 MG CAPDR PO SCH (08:22)
[2022-08-23] MEDS ORDERED: FUROSEMIDE 40 MG/4 ML VIAL IVP SCH (09:00)
--- NOTE | 2022-08-23 09:15 | NUR ---
MD IN AND MADE AWARE PT HARD IV STICK AND CURRENT IV TENDER ALSO MADE AWARE PT BECOMING MORE AGITATED NEW ORDER FOR ATIVAN AND PICC LINE NOTED, SPOKE WITH PT DECISION MAKER CARRIE GUNN PT SISTER GAVE CONSENT FOR PICC LINE VERIFIED BY 2 RN. PICC LINE RN DONNIE AWARE AND ON HIS WAY. NO DISTRESS NOTED AT THIS TIME WILL CONTINUE TO MONITOR AND ASSESS
[2022-08-23] MEDS: LORazepam 2 MG/ML VIAL IM/IVP PRN ×2 (10:24→15:01)
--- NOTE | 2022-08-23 10:24 | NUR ---
PT AGITATED OUT OF BED UNSTEADY PLACED BACK IN BED UNABLE TO REDIRECT WILL MEDICATE FOR AGITATION
--- NOTE | 2022-08-23 11:39 | NUR ---
PICC LINE INSERTED RIGHT UPPER ARM VERIFIED BY CXR AND OK TO USE PT TOLERATED WELL NO DISTRESS NOTED AT THIS TIME
[2022-08-23 12:00] VITALS: BP 172/86
[2022-08-23] MEDS: hydrALAZINE 20 MG/ML VIAL IVP PRN ×2 (12:11→21:15)
--- NOTE | 2022-08-23 15:01 | NUR ---
PT INCREASINGLY AGITATED ATTEMPTING TO GET OUT OF BED PULLING AT LINES ATIVAN GIVEN ORDERED
[2022-08-23 16:00] VITALS: BP 178/94
--- NOTE | 2022-08-23 19:28 | NUR ---
REC'D BEDSIDE REPORT FROM DAYSHIFT NURSE FOR CONTINUITY OF CARE. MARICEL Hudson RN
[2022-08-23 20:00] VITALS: BP 170/91
--- NOTE | 2022-08-23 22:07 | NUR ---
PATIENT PULLED OUT FAWAD DL PIIC LINE. PATIENT STILL HAS OFELIA 20G PIV IN PLACE AND INTACT.
[2022-08-24] VITALS: BP 176/81
[2022-08-24 04:00] VITALS: BP 166/80
[2022-08-24] MEDS: METOPROLOL 50 MG TAB PO SCH ×2 (04:47→12:47)
[2022-08-24 06:23] LABS: BASOPHILS % (AUTO) 0.5 % (0.0-2.0); EOSINOPHILS # (AUTO) 0.1 K/uL (0-0.4); EOSINOPHILS % (AUTO) 0.9 % (0.0-4.0); HEMATOCRIT 28.9 % (36-52); HEMOGLOBIN 9.6 g/dL (12.0-18.0); LYMPHOCYTES # (AUTO) 0.7 K/uL (2.0-11.5); LYMPHOCYTES % (AUTO) 6.8 % (20.5-51.1); MEAN CORPUSCULAR HEMOGLOBIN 31 pg (27-31); MEAN CORPUSCULAR HGB CONC 33 g/dL (33-37); MEAN CORPUSCULAR VOLUME 92.7 fL (80-94); MONOCYTES # (AUTO) 1.4 K/uL (0.8-1.0); MONOCYTES % (AUTO) 14.6 % (1.7-9.3); NEUTROPHILS # (AUTO) 7.5 K/uL (1.8-7.7); NEUTROPHILS % (AUTO) 77.2 % (42.2-75.2); PLATELET COUNT (AUTO) 357 K/uL (140-450); RED BLOOD CELL COUNT(AUTO) 3.11 MIL/uL (4.20-6.10); RED CELL DISTRIBUTION WIDTH 15.1 % (11.6-13.7); WHITE BLOOD COUNT (AUTO) 9.7 K/uL (4.8-10.8)
[2022-08-24 06:33] LABS: ANION GAP 12.4 (8-16); CARBON DIOXIDE 27.7 mmol/L (21-32); CHLORIDE 107 mmol/L (98-107); GLUCOSE 84 mg/dL (74-106); POTASSIUM 3.1 mmol/L (3.5-5.1); SODIUM SERUM 144 mmol/L (136-145); UREA NITROGEN, BLOOD 39 mg/dL (7-18)
--- NOTE | 2022-08-24 07:23 | NUR ---
BEDSIDE ENDORSEMENT TO DAY SHIFT NURSE FOR CONTINUITY OF CARE. MARICEL Hudson RN
--- NOTE | 2022-08-24 07:25 | NUR ---
RECEIVED REPORT FROM HEMANT FOR CONTINUITY OF CARE. NO SIGNS OF DISTRESS OR LABORED BREATHING AT THIS TIME. A&OX1, ON RA STATING AT 98%, SKIN INTACT. PT DOES NOT HAVE AN IV AT THIS TIME. NO COMPLAINT OF PAIN. TWO SIDE RAILS UP, BED IN LOW POSITION, CALL LIGHT WITHIN REACH, AND SAFETY MEASURES MEET AT THIS TIME. WILL CONTINUE TO MONITOR.
[2022-08-24 07:48] LABS: CREATININE 4.1 mg/dL (0.6-1.3)
[2022-08-24 08:00] VITALS: BP 158/69
[2022-08-24] MEDS ORDERED: ASPIRIN 81 MG TAB.CHEW PO SCH (09:00)
[2022-08-24 09:07] LABS: T4 (THYROXINE) 11.8 ug/dL (4.5-12.0)
[2022-08-24] MEDS: hydroCHLOROthiazide 25 MG TAB PO SCH (09:29)
[2022-08-24] MEDS: DULoxetine 30 MG CAPDR PO SCH (09:29)
[2022-08-24] MEDS: PANTOPRAZOLE 40 MG TABEC PO SCH (09:29)
[2022-08-24] MEDS: AMIODARONE 200 MG TAB PO SCH (09:29)
--- NOTE | 2022-08-24 09:31 | NUR ---
US AT BEDSIDE
--- NOTE | 2022-08-24 10:28 | NUR ---
PATIENT HAS BEEN SCREENED AND CATEGORIZED MODERATE NUTRITION RISK. PATIENT WILL BE SEEN WITHIN 3-5 DAYS OF ADMISSION. 08/22/22-08/27/22 REVIEWED BY GABRI[address]LE SUMNER RD
[2022-08-24 12:00] VITALS: BP 165/85
--- NOTE | 2022-08-24 13:00 | NUR ---
DC PLANNING KYAW OUTREACHED TO [facility] TO GATHER COLLATERAL INFORMATION PATIENT IS MINIMALLY VERBAL. KYAW SPOKE WITH JOHN AT ADMIN, WHO REPORTS PATIENT IS IN RETIREMENT CARE SINCE 06/09/22. PATIENT WAS REPORTEDLY ON HOSPICE SERVICE WITH [facility] HOWEVER, WAS REVOKED OF 05/25/22. JOHN REPORTS THAT PATIENT UTILIZES WC AND REQUIRES EXTENSIVE ASSIST. PATIENT REQUIRES ASSISTANCE WITH ALL ADL'S. JOHN REPORTS PATIENT AT BASELINE IS CONFUSED AND CAN BE RESISTANT TO CARE. PATIENTS SISTER CARRIE STAPLES [phone] IS REPORTED TO BE ACTIVE IN PATIENTS CARE PATIENT DOES NOT HAVE DECISION MAKING ABILITIES. JOHN REPORTS BEING IN CONTACT WITH PT SISTER AND DISCUSSED W/ SISTER THAT PT WILL BE EVALUATED FOR HOSPICE CARE ONCE PT RETURNS TO FACILITY. JOHN REPORTS PT IS NOT [facility] CONNECTED NOR UNDER GUARDIANSHIP. DC PLAN IS FOR PATIENT OT RETURN TO WHEN MEDICALLY STABLE.
[2022-08-24] MEDS ORDERED: NIFEdipine 60 MG TABER PO SCH (14:20)
[2022-08-24] MEDS ORDERED: POTASSIUM CHLORIDE 10 MEQ TABER PO SCH (14:30)
[2022-08-24] MEDS ORDERED: FUROSEMIDE 40 MG/4 ML VIAL IVP SCH (14:45)
[2022-08-24 16:00] VITALS: BP 144/75
--- NOTE | 2022-08-24 19:15 | NUR ---
ENDORSED PT TO SHEETMETAL TRADES WORKER NURSE TIFF FOR CONTINUITY OF CARE.
--- NOTE | 2022-08-24 19:30 | NUR ---
RECEIVED PT FROM AM NURSE FOR CONTINUITY OF CARE. PT IS STABLE
[2022-08-24 20:00] VITALS: BP 102/78
[2022-08-24] MEDS ORDERED: carvediloL 12.5 MG TAB PO SCH (21:00)
[2022-08-24 22:38] LABS: HEMOGLOBIN 8.8 g/dL (12.0-18.0)
--- NOTE | 2022-08-25 02:00 | NUR ---
PATIENT ASLEEP. NO DISTRESS NOTED
[2022-08-25 04:00] VITALS: BP 134/86
[2022-08-25 05:59] LABS: BASOPHILS % (AUTO) 0.1 % (0.0-2.0); HEMATOCRIT 26.4 % (36-52); HEMOGLOBIN 8.6 g/dL (12.0-18.0); LYMPHOCYTES # (AUTO) 0.2 K/uL (2.0-11.5); LYMPHOCYTES % (AUTO) 1.2 % (20.5-51.1); MEAN CORPUSCULAR HEMOGLOBIN 30 pg (27-31); MEAN CORPUSCULAR HGB CONC 33 g/dL (33-37); MEAN CORPUSCULAR VOLUME 92.1 fL (80-94); MONOCYTES % (AUTO) 6.5 % (1.7-9.3); NEUTROPHILS # (AUTO) 14.5 K/uL (1.8-7.7); NEUTROPHILS % (AUTO) 92.2 % (42.2-75.2); PLATELET COUNT (AUTO) 171 K/uL (140-450); RED BLOOD CELL COUNT(AUTO) 2.87 MIL/uL (4.20-6.10); WHITE BLOOD COUNT (AUTO) 15.7 K/uL (4.8-10.8)
[2022-08-25 06:21] LABS: ANION GAP 21.6 (8-16); CHLORIDE 105 mmol/L (98-107); GLUCOSE 66 mg/dL (74-106); POTASSIUM 3.6 mmol/L (3.5-5.1); SODIUM SERUM 142 mmol/L (136-145)
[2022-08-25 06:31] LABS: UREA NITROGEN, BLOOD 55 mg/dL (7-18)
[2022-08-25 06:37] LABS: CREATININE 5.5 mg/dL (0.6-1.3)
--- NOTE | 2022-08-25 06:44 | NUR ---
TEXTED MD REGARDING BUN 55,CREATININE 5.5, NO NEW ORDER GIVEN
--- NOTE | 2022-08-25 07:18 | NUR ---
ENDORSED PT TO AM NURSE. PT IS STABLE
[2022-08-25] MEDS: DULoxetine 30 MG CAPDR PO SCH ×2 (09:00→09:35)
[2022-08-25] MEDS: PANTOPRAZOLE 40 MG TABEC PO SCH ×2 (09:00→09:35)
[2022-08-25 09:01] VITALS: BP 60/33
--- NOTE | 2022-08-25 09:35 | NUR ---
PATIENT TRANSFERRED FROM ROOM 122-1 TO ICU BED 2 FOR LETHARGIC AND HYPOTENSION. BASELINE ASSESSMENT OBTAINED UPON ARRIVAL TO ICU UNIT. PATIENT ABLE TO OPEN EYES TO VERBAL STIMULI, ABLE TO GIVEN CORRECT NAME AND .
--- NOTE | 2022-08-25 09:36 | NUR ---
I was called into the room due to reported low BP, See VS. ICU had already been notified by the recharger and ICU bed [address] Tam was at bedside and notified of the pt changes. He also stated that the pt will be ordered a bladder scan and if residual greater than 200, we may reinsert fong due to pt pulling fong on yesterday. Report was givento Radha REED at 0910 and transfer completed at 0932. Pt is awake.
[2022-08-25] MEDS: cefTRIAXone 2,000 MG in DEXTROSE 5% 100 ML IV SCH ×2 (10:00→11:46)
--- NOTE | 2022-08-25 10:00 | NUR ---
UPDATED FAMILY VIA TELEPHONE AND NOTIFIED PATIENT TRANSFERRED TO ICU.
[2022-08-25] MEDS: NOREPINEPHRINE 16 MG in DEXTROSE 5% 250 ML IV PRN (10:41)
--- NOTE | 2022-08-25 12:00 | NUR ---
CONTINUE MONITORING LEVOPHED DRIP. CURRENTLY AT 18 MCG/MIN TO KEEP SBP >90. TURNING PATIENT EVERY TWO HOURS. PATIENT REMAINS RETRAIN BILATERAL SOFT WRIST WITH GOOD CMS TO BILATERAL WRIST. NO REDDENING OBSERVED. PATIENT INTERMITTENTLY RESTLESS REMOVING BLANKET. DENIES COMPLAINT OF PAIN.
--- NOTE | 2022-08-25 16:00 | NUR ---
NO CHANGES IN PRIOR ASSESSMENT. JEANIE CARE COMPLETED. PATIENT CONTINUES TO DRIBBLE BRIGHT RED BLOOD FROM PENIS. PATIENT PULLED GELLER CATH OUT ON 08/24/22
--- NOTE | 2022-08-25 16:01 | NUR ---
08/25/22 RD INITIAL ASSESSMENT COMPLETED PLEASE REFER TO NUTRITION ASSESSMENT UNDER CARE ACTIVITY FOR ESTIMATED NUTRITIONAL NEEDS. 1. ADD MECHANICAL SOFT TO CURRENT RENAL DIET. 2. RECOMMEND NEPRO BID. -THIS PROVIDES AN ADDITIONAL 850 KCAL AND 38 GRAMS OF PR[address]IN. 3. RD TO FOLLOW-UP 3-5 DAYS, MODERATE RISK REVIEWED BY GABRIELLE SUMNER RD
--- NOTE | 2022-08-25 19:26 | NUR ---
REPORT GIVEN TO MAT REED
--- NOTE | 2022-08-25 19:30 | NUR ---
TRANSFER OF CARE FROM [facility], RECEIVED REPORT FROM DEREK MATTA
[2022-08-25 20:00] VITALS: BP 105/89
[2022-08-25 22:00] VITALS: BP 95/48
[2022-08-26] VITALS (21 sets, daily range): BP systolic 110–149; BP diastolic 56–94
--- NOTE | 2022-08-26 00:36 | NUR ---
RT AT BEDSIDE; SUPPLEMENTAL OXYGEN HAS BEEN TITRATED FROM 2L TO 1L. PATIENT REMAINS WITH 02 SATS >98% WILL CONTINUE TO MONITOR PATIENT Addendum: 08/26/22 at 0038 by Gricel Carrasco RN RT WAS AT BEDSIDE ON 08/25/2022 @ 4060
[2022-08-26] MEDS: NOREPINEPHRINE 16 MG in DEXTROSE 5% 250 ML IV PRN ×2 (00:49→18:00)
[2022-08-26 06:13] LABS: CARBON DIOXIDE 21.9 mmol/L (21-32); CHLORIDE 102 mmol/L (98-107); GLUCOSE 70 mg/dL (74-106); POTASSIUM 4.9 mmol/L (3.5-5.1); SODIUM SERUM 140 mmol/L (136-145)
[2022-08-26] MEDS: HYDROcodone/APAP 7.5/325 MG 1 TAB PO PRN ×2 (06:15→23:16)
[2022-08-26] MEDS: LORazepam 2 MG/ML VIAL IM/IVP PRN (06:15)
[2022-08-26 06:23] LABS: CREATININE 6.6 mg/dL (0.6-1.3); UREA NITROGEN, BLOOD 79 mg/dL (7-18)
[2022-08-26 06:24] LABS: HEMOGLOBIN 8.7 g/dL (12.0-18.0); MEAN CORPUSCULAR HEMOGLOBIN 30 pg (27-31); MEAN CORPUSCULAR HGB CONC 32 g/dL (33-37); MEAN CORPUSCULAR VOLUME 91.3 fL (80-94); PLATELET COUNT (AUTO) 160 K/uL (140-450); RED BLOOD CELL COUNT(AUTO) 2.96 MIL/uL (4.20-6.10); RED CELL DISTRIBUTION WIDTH 15.2 % (11.6-13.7)
--- NOTE | 2022-08-26 06:57 | NUR ---
RECEIVED CALL FROM LAB (YESSI). PATIENT'S CBC IS NOT MATCHING PREVIOUS CBC. PHLEBOTOMY WILL COME BACK FOR REPEAT LAB DRAW
--- NOTE | 2022-08-26 07:28 | NUR ---
TRANSFER OF CARE TO DAYSHIFT; REPORT GIVEN TO MELONIE
[2022-08-26 08:36] LABS: WHITE BLOOD COUNT (AUTO) 33.5 K/uL (4.8-10.8)
--- NOTE | 2022-08-26 09:30 | NUR ---
AM MEDICATION: CYMBALTA AND PROTONIX PO NOT GIVEN, PT IS DROWSY. REFUSED PO INTAKE, WILL TRY AGAIN LATER.
[2022-08-26] MEDS: cefTRIAXone 2,000 MG in DEXTROSE 5% 100 ML IV SCH (09:43)
[2022-08-26 09:51] LABS: METAMYELOCYTES % 8 % (0-0); MONOCYTES % (MANUAL) 11 % (5-12); MYELOCYTES % 2 % (0-0)
[2022-08-26] MEDS ORDERED: VANCOMYCIN PER PHARMACY MC PRN (11:25)
--- NOTE | 2022-08-26 11:32 | NUR ---
bladder scan done 321 ml of urine noted.
[2022-08-26] MEDS ORDERED: PIPERACILLIN/TAZOBACTAM 3.375 GM in DEXTROSE 5% 50 ML IV SCH (12:00)
--- NOTE | 2022-08-26 12:30 | NUR ---
Nutrition: offered lunch, patient refused wants to sleep. ( drowsy). will try again later.
[2022-08-26] MEDS: PIPERACILLIN/TAZOBACTAM 2.25 GM in DEXTROSE 5% 50 ML IV SCH ×3 (12:41→23:16)
[2022-08-26] MEDS ORDERED: VANCOMYCIN 1,000 MG in DEXTROSE 5% 250 ML IV SCH (13:30)
--- NOTE | 2022-08-26 15:32 | NUR ---
UROLOGY CONSULT: CALLED AND S/W HECTOR FROM DR. OTERO OFFICE ABOUT THE CONSULT.
--- NOTE | 2022-08-26 16:56 | NUR ---
TRIED TO INSERT COUDE CATHETER PER MD OTERO RECOMMENDATION. UNSUCCESSFUL.MD OTERO INFORMED.
--- NOTE | 2022-08-26 19:13 | NUR ---
MANJULA OLSON ( UROLOGY) IS HERE. ENDORSEMENT REPORT GIVEN TO MARLENI REED.
--- NOTE | 2022-08-26 19:20 | NUR ---
Received report on pt. Pt awake, yelling profanities, not following commands, otherwise no distress. FILTER SCREEN CLEANER Magdangal at bedside attempting insertion of catheter and irrigation. Pt on levophed drip. Bilateral soft wrist restraints in place for safety.
--- NOTE | 2022-08-26 19:40 | NUR ---
Pt with loose BMx2, perform louis care. [employer] OFFICER also attempting another reinsertion of catheter. STAT ultrasound ordered for pt.
--- NOTE | 2022-08-26 20:09 | NUR ---
Call to Dr. Marie regarding pt's ultrasound, left voicemail.
--- NOTE | 2022-08-26 20:34 | NUR ---
Dr. Marie returned call, informed regarding renal ultrasound, states to continue flushing orders until clear, or if unable to visualize output, insert larger size catheter and irrigate until clear. Dr. Marie states if unable to visualize output, then remove catheter and leave for FRICTION SAW OPERATOR in morning. Dr. Marie also states if critical results occur from renal ultrasound, notify attending .
[2022-08-27] VITALS (21 sets, daily range): BP systolic 97–132; BP diastolic 44–82
[2022-08-27 05:51] LABS: HEMATOCRIT 25.7 % (36-52); HEMOGLOBIN 8.3 g/dL (12.0-18.0); MEAN CORPUSCULAR HEMOGLOBIN 30 pg (27-31); MEAN CORPUSCULAR HGB CONC 33 g/dL (33-37); MEAN CORPUSCULAR VOLUME 90.8 fL (80-94); PLATELET COUNT (AUTO) 120 K/uL (140-450); RED BLOOD CELL COUNT(AUTO) 2.83 MIL/uL (4.20-6.10); RED CELL DISTRIBUTION WIDTH 15.6 % (11.6-13.7)
[2022-08-27] MEDS: PIPERACILLIN/TAZOBACTAM 2.25 GM in DEXTROSE 5% 50 ML IV SCH ×3 (05:54→20:10)
[2022-08-27 06:14] LABS: ANION GAP 20.6 (8-16); CARBON DIOXIDE 21.5 mmol/L (21-32); CHLORIDE 102 mmol/L (98-107); GLUCOSE 59 mg/dL (74-106); POTASSIUM 4.1 mmol/L (3.5-5.1); SODIUM SERUM 140 mmol/L (136-145)
[2022-08-27 06:16] LABS: WHITE BLOOD COUNT (AUTO) 31.1 K/uL (4.8-10.8)
[2022-08-27 06:18] LABS: CREATININE 7.2 mg/dL (0.6-1.3); UREA NITROGEN, BLOOD 98 mg/dL (7-18)
--- NOTE | 2022-08-27 06:25 | NUR ---
Unable to irrigate urine to clear, no additional output noted throughout night. Removed catheter per Dr. Marie's instructions. No blood clots noted on tip of catheter.
--- NOTE | 2022-08-27 07:17 | NUR ---
Endorsed plan of care to Radha REED
--- NOTE | 2022-08-27 07:30 | NUR ---
RECEIVED REPORT FROM BUS TRANSPORTATION MANAGER. PATIENT ON LEVOPHED AT 2 MCG/MIN TO KEEP SBP >90 PER MD ORDERS. PATIENT AROUSABLE TO VERBAL STIMULI, ABLE TO STATE NAME AND . STATES, "DON'T TOUCH ME", EXPLAINED NEEDED TO EVALUATE AND ASSESS PATIENT SECONDARY TO BEING IN HOSPITAL. PATIENT REMAINS ON BILATERAL SOFT WRIST RESTRAINTS DUE TO PULLING LINES AND TUBES. PLAN OF CARE INCLUDES TITRATION OF LEVOPHED.
--- NOTE | 2022-08-27 08:30 | NUR ---
ORLANDO GARCIA AT BEDSIDE EVALUATING PATIENT, PLAN OF CARE IS COMPLETE CT SCAN AND SHE WILL RETURN TO BEDSIDE AT NOON FOR FURTHER EVALUATION.
--- NOTE | 2022-08-27 09:15 | NUR ---
TRANSFERRED PATIENT VIA BED TO CT SCAN OF THE ABDOMEN PER MD ORDERS.
[2022-08-27] MEDS: PANTOPRAZOLE 40 MG TABEC PO SCH (09:29)
[2022-08-27] MEDS: DULoxetine 30 MG CAPDR PO SCH (09:29)
--- NOTE | 2022-08-27 09:40 | NUR ---
DR SARAH VITAL FROM RADIOLOGY NOTIFIED PRIMARY NURSE OF CURRENT RESULTS OF CT SCAN (SEE CT RESULTS). RECOMMENDATION INCLUDES POSSIBLE TRANSFER TO HIGH LEVEL OF CARE.
--- NOTE | 2022-08-27 09:55 | NUR ---
NOTIFIED RADHA INGRAM MD OF CURRENT CT RESULTS VIA TELEPHONE
--- NOTE | 2022-08-27 10:54 | NUR ---
NOTIFIED BOILER OR ENGINE OPERATOR FOR SISTER OF PATIENT FROM [place], MEJIA GUNN [phone] STATES WILL BE AT BEDSIDE IN APPROX 30 MIN
--- NOTE | 2022-08-27 12:00 | NUR ---
INDUSTRIAL MAINTENANCE MECHANIC AT BEDSIDE TO TALK WITH SISTER OF PATIENT
--- NOTE | 2022-08-27 12:04 | NUR ---
PT CURRENTLY ON ROOM AIR, SATURATION 94%.
[2022-08-27] MEDS ORDERED: LIDOCAINE MPF 1% 10 MG/ML VIAL INJ SCH ×2 (12:55→13:00)
[2022-08-27] MEDS ORDERED: LIDOCAINE MPF 1% 5 ML ONE (12:59)
--- NOTE | 2022-08-27 13:10 | NUR ---
DR NELI OTERO AT BEDSIDE. PLACED A 14 FR SUPRAPUBIC CATH SECONDARY TO PATIENT INABILITY TO URINATE DUE TO CYST AND STONE SHOWN ON RESENT CT SCAN AND RENAL ULTRA SOUND. MD IRRIGATED 200ML AND PATIENT URINARY OUTPUT 80ML OF CLEAR RED FLUID. PROCEDURE EXPLAINED AT BEDSIDE TO PATIENT AND HE AGREED TO PROCEDURE EMERGENT PROCEDURE. PATIENT TOLERATED PROCEDURE WELL. ANNABELLA SENIOR BIOINFORMATICS SCIENTIST NURSE AT BEDSIDE DURING PROCEDURE. PATIENT RESTING COMFORTABLE IN BED. SISTER IN WAITING ROOM DURING PROCEDURE AND ALLOW TO RETURN TO BEDSIDE POP AFTER PROCEDURE. (SEE DR NELI OTERO PROCEDURE NOTES).
--- NOTE | 2022-08-27 19:54 | NUR ---
REPORT GIVEN TO DEREK LOPEZ.
--- NOTE | 2022-08-27 20:00 | NUR ---
RECEIVED REPORT FROM JANUARY, PT ON TELE STATUS. PT AWAKE,PERIODS OF CONFUSION NOTED.SB ON MONITOR.ON ROOM AIR.WITH MIDLINE TO FAWAD INTACT.NS AT TKO.WITH SUPRAPUBIC CATHETER IN PLACE, WITH SMALL AMT OF DARK J[place]HUA URINE NOTED,SKIN INTACT.GENERALIZED WEAKNESS NOTED.W/BILATERAL SOFT WRIST RESTRAINTS NOTED.NO SIGNS OF INJURIES NOTED.DENIES PAIN WHEN ASKED.CALL LIGHT WITHIN REACH.FALL PRECAUTION ALSO IN PLACE.WILL TRANSFER PT TO TELEMETRY UNIT.
--- NOTE | 2022-08-27 21:00 | NUR ---
PT TRANSFERRED TO TELE ROOM 107A IN STABLE CONDITION W/ PRE FABRICATOR ATTACHED.NO SOB NOTED ON ROOM AIR.MIDLINE AND SUPRAPUBIC CATHETER INTACT.DENIES PAIN. REPORT GIVEN TO GUERA REED
--- NOTE | 2022-08-27 21:05 | NUR ---
RECEIVED PT FROM ICU / RWINNETOON , AWAKE , MIDLINE INTACT AND PATENT , ON TELE MONITOR - SB , ON RA , O2 SAT WNL . W/ SUPRA PUBIC CATH - INCISSION DRESSING DRY AND INTACT . DENIES PAIN , PT IS ON WRIST RESTRAINT BI LAT - NO SIGNS OF INJURIES ON RESTRAINT AREAS . WILL CONT. TO MONITOR .
--- NOTE | 2022-08-27 23:51 | NUR ---
CLARIFYING TO RT - PER RT - YES , PT IS ON ROOM AIR - WILL CONT. TO MONITOR . BP RE CHECKED 116/67 , HR 59 . , ON TELE MONITOR .
[2022-08-28] VITALS (7 sets, daily range): BP systolic 112–135; BP diastolic 57–78
--- NOTE | 2022-08-28 | NUR ---
ROUNDS , NO S/SX OF ACUTE DISTRESS NOTED AT THIS TIME , WILL CONT. TO MONITOR .
[2022-08-28] MEDS: PIPERACILLIN/TAZOBACTAM 2.25 GM in DEXTROSE 5% 50 ML IV SCH ×4 (00:05→11:53)
--- NOTE | 2022-08-28 05:55 | NUR ---
VERIFYING THE CXR ORDER - PER RADIOLOGIST IT IS ALREADY CANCELLED . I PUT THE ORDER IN WRONG PT. PT . IS NOT FOR CXR
[2022-08-28 06:52] LABS: BASOPHILS % (AUTO) 0.1 % (0.0-2.0); EOSINOPHILS # (AUTO) 0.2 K/uL (0-0.4); EOSINOPHILS % (AUTO) 0.6 % (0.0-4.0); HEMATOCRIT 26.6 % (36-52); HEMOGLOBIN 8.7 g/dL (12.0-18.0); LYMPHOCYTES # (AUTO) 1.1 K/uL (2.0-11.5); MEAN CORPUSCULAR HEMOGLOBIN 30 pg (27-31); MEAN CORPUSCULAR HGB CONC 33 g/dL (33-37); MEAN CORPUSCULAR VOLUME 90.3 fL (80-94); MONOCYTES % (AUTO) 3.6 % (1.7-9.3); NEUTROPHILS # (AUTO) 25.6 K/uL (1.8-7.7); NEUTROPHILS % (AUTO) 91.7 % (42.2-75.2); PLATELET COUNT (AUTO) 115 K/uL (140-450); RED BLOOD CELL COUNT(AUTO) 2.95 MIL/uL (4.20-6.10); RED CELL DISTRIBUTION WIDTH 15.2 % (11.6-13.7)
[2022-08-28 06:53] LABS: ANION GAP 21.4 (8-16); CARBON DIOXIDE 20.7 mmol/L (21-32); CHLORIDE 102 mmol/L (98-107); GLUCOSE 122 mg/dL (74-106); POTASSIUM 4.1 mmol/L (3.5-5.1); SODIUM SERUM 140 mmol/L (136-145)
[2022-08-28 07:02] LABS: WHITE BLOOD COUNT (AUTO) 27.9 K/uL (4.8-10.8)
--- NOTE | 2022-08-28 07:38 | NUR ---
ENDORSE PT . FOR CONT. OF CARE . AWAKE .CALL LIGHT WITHIN REACH .
--- NOTE | 2022-08-28 07:39 | NUR ---
RECEIVED REPORT FROM MACHINE SHOP WORKER NURSE GUERA. PT SLEEPING, EASILY AROUSABLE BY VERBAL STIMULI. RESPIRATIONS DONAL NAD UNLABORED ON RA. ON SOFTWARE QUALITY TEST ENGINEER. PT ON SOFT WRIST RESTRAINT. NO REDNESS, SWELLING, PAIN, BRUISES ON WRISTS UPON ASSESSMENT. PT HAS SUPRAPUBIC FC, INTACT AND PATENT DRAINING, DARK JOSHUA/BROWN URINE. PT HAS FAWAD MIDLINE, INTACT AND PATENT. CALL LIGHT WITHIN REACH. SAFETY PRECAUTIONS IN PLACE.
[2022-08-28 08:13] LABS: CREATININE 7.9 mg/dL (0.6-1.3); UREA NITROGEN, BLOOD 117 mg/dL (7-18)
--- NOTE | 2022-08-28 08:13 | NUR ---
RECEIVED CRITICAL LAB VALUE BUN-7.9, CREATININE-117. MADE AWARE. AWAITING FOR RESPONSE.
[2022-08-28] MEDS ORDERED: VANCOMYCIN 1,000 MG in DEXTROSE 5% 250 ML IV SCH (09:00)
[2022-08-28] MEDS ORDERED: ALBUTEROL SULFATE/IPRATROPIU 3 ML SOL IH PRN (09:15)
[2022-08-28] MEDS: DULoxetine 30 MG CAPDR PO SCH (09:17)
[2022-08-28] MEDS: PANTOPRAZOLE 40 MG TABEC PO SCH (09:17)
--- NOTE | 2022-08-28 09:19 | NUR ---
ADMINISTERED MORNING ORAL MEDICATIONS. PT TOLERATING WELL.
--- NOTE | 2022-08-28 09:30 | NUR ---
IV VANCO ADMINISTERED BY DEREK HARRELL. NO ADVERSE REACTION NOTED.
--- NOTE | 2022-08-28 10:30 | NUR ---
CLEANED PT. CHANGED DIAPERS AND BEDDINGS WITH SPINNING FRAME FIXER. PT TOLERATED WELL. NO DISTRESS NOTED. PT REMAINED CLEAN AND DRY.
--- NOTE | 2022-08-28 11:53 | NUR ---
IV ABX ADMINISTERED BY DEREK HARRELL. NO ADVERSE REACTION NOTED.
--- NOTE | 2022-08-28 13:29 | NUR ---
DID ROUNDS. PT AWAKE WITH EYES CLOSED. NO DISTRESS NOTED. WITH FAMILY MEMBER, CARRIE AT BEDSIDE.
--- NOTE | 2022-08-28 16:30 | NUR ---
SPOKE TO LILY OF [facility]. PER LILY, PT GOING TO [facility] [phone]. PT FOR PICK-UP BY [facility] AROUND 18:30 TO 19:30.
--- NOTE | 2022-08-28 16:50 | NUR ---
GAVE REPORT TO [facility] OF [facility]. PT WAS INFORMED ABOUT HIS D/C AND PICK-UP TIME. CALLED PT SISTER CARRIE AND MADE AWARE ABOUT PTS TRANSFER TO [facility].
--- NOTE | 2022-08-28 18:20 | NUR ---
PT PICKED BY TRANSPORT STAFF VIA GURNEY. REMOVED ID WRIST BAND AND TELE MONITOR. PT LEFT WITH SUPRAPUBIC CATHETER INTACT, DRAINING WELL. PT LEFT WITH FAWAD MIDLINE, INTACT, FOR IV ABX. ALL BELONGINGS TAKEN UPON DC. PT DC TO [facility]. PT IS STABLE.
== END 2022-08-28 18:20 | DRG 280 ==
LOC: MED 10:38 → MTU 13:29 → MIC 08-25 09:46 → MTU 08-27 21:04
PROVIDERS: ADMIT Family Medicine; ATTEND Family Medicine
PROC: 0T9B70Z Drainage of Bladder with Drainage Device, Via Natural or Artificial Opening (ICD-10-PCS; principal; 2022-08-23)
PROC: 02H633Z Insertion of Infusion Device into Right Atrium, Percutaneous Approach (ICD-10-PCS; 2022-08-23)
PROC: B548ZZA Ultrasonography of Superior Vena Cava, Guidance (ICD-10-PCS; 2022-08-23)
DX: I13.0 Hypertensive heart and chronic kidney disease with heart failure and stage 1 through stage 4 chronic kidney disease, or unspecified chronic kidney disease (principal); E43 Unspecified severe protein-calorie malnutrition; I21.A1 Myocardial infarction type 2; N17.0 Acute kidney failure with tubular necrosis; J18.9 Pneumonia, unspecified organism; I50.43 Acute on chronic combined systolic (congestive) and diastolic (congestive) heart failure; G93.41 Metabolic encephalopathy; C34.90 Malignant neoplasm of unspecified part of unspecified bronchus or lung; Z68.1 Body mass index [BMI] 19.9 or less, adult; N18.4 Chronic kidney disease, stage 4 (severe); I16.0 Hypertensive urgency; R06.03 Acute respiratory distress; Y95 Nosocomial condition; K21.9 Gastro-esophageal reflux disease without esophagitis; F32.A Depression, unspecified; G30.9 Alzheimer's disease, unspecified; D63.8 Anemia in other chronic diseases classified elsewhere; F02.80 Dementia in other diseases classified elsewhere, unspecified severity, without behavioral disturbance, psychotic disturbance, mood disturbance, and anxiety; K74.60 Unspecified cirrhosis of liver; I48.0 Paroxysmal atrial fibrillation; N40.0 Benign prostatic hyperplasia without lower urinary tract symptoms; Z66 Do not resuscitate; N30.90 Cystitis, unspecified without hematuria; Z20.822 Contact with and (suspected) exposure to COVID-19; Z86.718 Personal history of other venous thrombosis and embolism; Z79.01 Long term (current) use of anticoagulants; Z90.5 Acquired absence of kidney; Z85.118 Personal history of other malignant neoplasm of bronchus and lung
CPT/HCPCS: 36415; 36600; 71045; 76770; 80048; 80053; 80202; 81001; 82150; 82803; 82948; 83036; 83690; 83735; 83880; 84100; 84436; 84439; 84443; 84479; 84484; 85018; 85025; 85610; 85730; 87081; 93005; 96374; 96375; 99285; J0360; J0696; J1940; J2001; J2060; J2543; J3370; J3490; J7060; Q0092

== ENCOUNTER 2022-11-26 07:50 | Emergency (ER) | payer OTHER, MEDICAID ==
[~2022-11-26] VITALS: Ht 188 cm; Wt 81.6 kg
[2022-11-26 07:53] VITALS: BP 185/90
--- NOTE | 2022-11-26 08:33 | NUR ---
SUPRAPUBIC CATHETER PLACED 12F BY DR LEROY
--- NOTE | 2022-11-26 12:30 | NUR ---
SPOKE TO DONNIE REED AT [facility] FOR CONTINUATION OF CARE.
[2022-11-26 12:45] VITALS: BP 144/70
--- NOTE | 2022-11-26 12:45 | NUR ---
TRANSPORT HERE FOR PT. PT STABLE ON DC
== END 2022-11-26 12:44 | disposition home or self-care (01) ==
LOC: MED 07:50
DX: T83.021A Displacement of indwelling urethral catheter, initial encounter (principal); I10 Essential (primary) hypertension; K21.9 Gastro-esophageal reflux disease without esophagitis; D64.9 Anemia, unspecified; F03.90 Unspecified dementia, unspecified severity, without behavioral disturbance, psychotic disturbance, mood disturbance, and anxiety; F17.210 Nicotine dependence, cigarettes, uncomplicated; Z79.899 Other long term (current) drug therapy; Y84.6 Urinary catheterization as the cause of abnormal reaction of the patient, or of later complication, without mention of misadventure at the time of the procedure; Y92.89 Other specified places as the place of occurrence of the external cause
CPT/HCPCS: 51702; 99284